=== PATIENT | male | born 1945 | race Asian ===

== ENCOUNTER 2021-04-17 18:19 | Inpatient (IN) | payer MEDICARE ==
--- NOTE | 2021-04-17 18:33 | Emergency Department Report ---
HPI - General Time Seen by Provider: 04/17/21 18:21 - HPI HPI: Room 20 The patient is a 75-year-old male present with a chief complaint of slurred speech. The patient states last time he notices speech was normal was last night before going to bed at 21: 00. The patient states he awakened this morning at 10: 00 and took a phone call. The patient states it was at this time that he noticed he had slurred speech. Later this afternoon the patient's son saw the patient fall and EMS was called. Son noticed slurred speech and admitted to right-sided weakness. Patient complains of pain in his right lower extremity which is chronic since he has had surgery and his slurred speech. Patient denies any other complaints ED Past Medical Hx - Past Medical History Hx Hypertension: Yes - Surgical History Past Surgical History?: No Additional Surgical History: Back surgery - Family History Family history: no significant - Social History Smoking Status: Never Smoker Substance Use Type: None ED Review of Systems ROS: Stated complaint: SLURRRED SPEECH Other details as noted in HPI Constitutional: no symptoms reported Eyes: denies: eye pain ENT: denies: throat pain Respiratory: no symptoms reported Cardiovascular: denies: chest pain Endocrine: no symptoms reported Gastrointestinal: denies: abdominal pain Genitourinary: denies: dysuria Musculoskeletal: denies: back pain Neurological: other (Slurred speech). denies: headache Physical Exam - Physical Exam Physical Exam: GENERAL: The patient is well-developed well-nourished male lying on stretcher not appearing to be in acute distress. [] HEENT: Normocephalic. Atraumatic. Extraocular motions are intact. Patient has moist mucous membranes. NECK: Supple. Trachea midline CHEST/LUNGS: Clear to auscultation. There is no respiratory distress noted. HEART/CARDIOVASCULAR: Regular. There is no tachycardia. There is no gallop rub or murmur. ABDOMEN: Abdomen is soft, nontender. Patient has normal bowel sounds. There is no abdominal distention. SKIN: There is no rash. There is no edema. There is no diaphoresis. NEURO: The patient is awake, alert, and oriented. The patient is cooperative. Cranial nerves II through XII grossly intact with exception of cranial nerve #7 on the right patient's smile is asymmetric. Slight drift of the right upper extremity when held a 45 degree angle for 10 seconds however does not fall down to the bed. Patient complains of pain and weakness in his right leg since he has had surgery making it difficult to flex at the right hip and right knee. GCS 15 the patient has slurred speech it. GCS 15. NIHSS= 4 MUSCULOSKELETAL: There is no evidence of acute injury. ED Medical Decision Making - Lab Data Result diagrams: 04/17/21 18:40 04/17/21 18:40 Laboratory Tests 04/17/21 04/17/21 04/17/21 18:40 18:40 18:40 WBC 2.8 L RBC 3.32 L Hgb 9.1 L Hct 27.4 L MCV 82 L MCH 27 L MCHC 33 RDW 22.0 H Plt Count 217 Lymph % (Auto) Box Blank Machine Feeder Seg Neutrophils % Box Blank Machine Feeder PT 14.4 INR 1.07 APTT 31.3 Thrombin Time 16.5 Sodium 131 L Potassium 4.5 Chloride 101.5 Carbon Dioxide 21 L Anion Gap 13 BUN 7 L Creatinine 1.2 Estimated GFR 59 BUN/Creatinine Ratio 6 Glucose 85 Calcium 8.6 Magnesium 2.10 Troponin T < 0.010 Plasma/Serum Alcohol 04/17/21 18:40 WBC RBC Hgb Hct MCV MCH MCHC RDW Plt Count Lymph % (Auto) Seg Neutrophils % PT INR APTT Thrombin Time Sodium Potassium Chloride Carbon Dioxide Anion Gap BUN Creatinine Estimated GFR BUN/Creatinine Ratio Glucose Calcium Magnesium Troponin T Plasma/Serum Alcohol < 0.01 - EKG Data -: EKG Interpreted by [place] EKG shows normal: sinus rhythm Rate: bradycardia (57 bpm) - EKG Data When compared to previous EKG there are: previous EKG unavailable Interpretation: nonspecific ST-T wave rhina (T wave inversion lead aVL) - Radiology Data Radiology results: report reviewed (CT head), image reviewed (CT head) [facility] [address] [place] [address] Cat Scan Report Signed Patient: ERLINDA SEN MR#: [id number] : 1945 Acct:[id number] Age/Sex: 75 / M ADM Date: 04/17/21 Loc: ED Attending Dr: Ordering Physician: JUANJO ARAYA MD Date of Service: 04/17/21 Procedure(s): CT head/brain wo con Accession Number(s): [id number] cc: JUANJO ARAYA MD CT head/brain wo con INDICATION / CLINICAL INFORMATION: 75 years Male; Slurred speech. TECHNIQUE: Routine CT head without contrast. All CT scans at this location are performed using CT dose reduction for ALARA by means of automated exposure control. COMPARISON: None. FINDINGS: BRAIN / INTRACRANIAL CONTENTS: There is extensive cerebral white matter disease most consistent with microvascular angiopathy. 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 There is mild cerebral atrophy with associated prominence of the ventricular system. There is no clear CT evidence of acute intracranial hemorrhage or significant mass effect. ORBITS: No significant abnormality of visualized orbits. SINUSES / MASTOIDS: No significant abnormality in the visualized paranasal sinuses or mastoid air cells. CRANIOCERVICAL JUNCTION: No significant abnormality. ADDITIONAL FINDINGS: None. IMPRESSION: 1. There is extensive microvascular angiopathy as described without CT evidence of acute intracranial hemorrhage. The study was specified as code stroke and called to Dr. Araya in the ER at 5:50 PM Central standard time. Signer Name: Renard Tomas MD Signed: 04/17/2021 6:51 PM Workstation Name: [id number] Transcribed By: MR Dictated By: Renard Tomas MD Electronically Authenticated By: Renard Tomas MD Signed Date/Time: 04/17/211850 DD/ 47 TD/TT: Print Cancel - Differential Diagnosis CVA Critical care attestation.: If time is entered above; I have spent that time in minutes in the direct care of this critically ill patient, excluding procedure time. ED Disposition Clinical Impression: CVA (cerebral vascular accident) Disposition: OP ADMIT IP TO THIS HOSP Is pt being admited?: Yes Does the pt Need Aspirin: Yes Condition: Fair Referrals: PRIMARY CARE, [Primary Care Provider] - 3-5 Days Time of Disposition: 19:51 (Hospitalist notified (CHACORTA Suarez))
--- NOTE | 2021-04-17 18:40 | Consultation ---
History of Present Illness - Reason for Consult Consult date: 04/17/21 - History of Present Illness [facility] Consult Note # Demographics Consult Type: Acute Stroke Level 2 (4.5-24 hrs) Patient Location: Emergency Room First Name: Thomas Last Name: Amy Date of : 1945 Age: 75 Gender: Male Time of Initial Page ( Time): 04/17/2021, 18:27 Time of Return Call ( Time): 04/17/2021, 18:29 # HPI History: 75yo man who presents to the hospital with symptoms of slurred speech. He noted it initially this morning at around 10AM when he took a phone call. He last was speaking normally at 9PM. he states that his right foot feels numb. # Scores Time of exam and NIHSS (): 04/17/2021, 18:34 Level of Consciousness 1a: [0] = Alert; keenly responsive LOC Questions 1b: [0] = Answers both questions correctly LOC Commands 1c: [0] = Performs both tasks correctly Best Gaze 2: [0] = Normal Visual 3: [0] = No visual loss Facial Palsy 4: [1] = Minor paralysis Motor Arm Left 5a: [0] = No drift Motor Arm Right 5b: [0] = No drift Motor Leg Left 6a: [0] = No drift Motor Leg Right 6b: [0] = No drift Limb Ataxia 7: [0] = Absent Sensory 8: [0] = Normal Best Language 9: [0] = No aphasia Dysarthria 10: [2] = Severe dysarthria Extinction and Inattention 11: [0] = No abnormality NIHSS Total: 3 # PMH-FH-SH Past Medical History: hypertension Social History: non-smoker non-drinker Medications: aspirin # Data Head CT: no bleed extensive white matter disease # Assessment Impression: Ischemic Stroke (Acute) # Plan Thrombolytic/Intervention: NOT IV Thrombolytic or IA Intervention Thrombolytic Exclusion: > 4.5 hours Intraarterial Exclusion: clinically consistent with small vessel disease Target Blood Pressure: SBP < 220 Labs: ESR lipid panel Imaging: (urgency: routine): CT Angiogram Head and CT Angiogram Neck MRI Brain without contrast Diagnostic Test: echo without bubble study Therapy/Evaluation: NPO until swallow evaluation PT/OT evaluation speech/swallow consultation Medication: aspirin 81 mg PLUS clopidogrel (Plavix) 75 mg for 21 days, then monotherapy therafter DVT Prophylaxis: SCD chemical DVT prophylaxis Other: permissive hypertension telemetry monitoring I have discussed my recommendations with the referring provider Disposition: admit Medications and Allergies Allergies Allergy/AdvReac Type Severity Reaction Status Date / Time No Known Allergies Allergy Unverified 04/17/21 18:35
[2021-04-17 18:47] LABS: Hematocrit 27.4 % (35.5-45.6); Hemoglobin 9.1 gm/dl (11.8-15.2); Mean Corpuscular HGB Conc 33 % (32-34); Mean Corpuscular Volume 82 fl (84-94); Platelet Count 217 K/mm3 (140-440); Red Blood Count 3.32 M/mm3 (3.65-5.03)
[2021-04-17] MEDS ORDERED: ASPIRIN 325 MG TAB PO ONE (18:51)
--- NOTE | 2021-04-17 18:56 | Cat Scan Report ---
CT head/brain wo con INDICATION / CLINICAL INFORMATION: 75 years Male; Slurred speech. TECHNIQUE: Routine CT head without contrast. All CT scans at this location are performed using CT dos e reduction for ALARA by means of automated exposure control. COMPARISON: None. FINDINGS: BRAIN / INTRACRANIAL CONTENTS: There is extensive cerebral white matter disease most consistent with microvascular angiopathy. Findings are most consistent with old infarct involving left cerebellum wit h encephalomalacia. There is mild cerebral atrophy with associated prominence of the ventricular syst em. There is no clear CT evidence of acute intracranial hemorrhage or significant mass effect. ORBITS: No significant abnormality of visualized orbits. SINUSES / MASTOIDS: No significant abnormality in the visualized paranasal sinuses or mastoid air hamlet ls. CRANIOCERVICAL JUNCTION: No significant abnormality. ADDITIONAL FINDINGS: None. IMPRESSION: 1. There is extensive microvascular angiopathy as described without CT evidence of acute intracranial hemorrhage. The study was specified as code stroke and called to Dr. Denson in the ER at 5:50 PM Central standard t briana. Signer Name: Renard Tomas MD Signed: 04/17/2021 6:51 PM Workstation Name: [id number]
[2021-04-17 18:58] LABS: INR 1.07 (0.87-1.13); Partial Thromboplastin Time 31.3 Sec. (24.2-36.6)
[2021-04-17 19:11] LABS: Thrombin Time 16.5 Sec. (15.1-19.6)
[2021-04-17 19:13] LABS: BUN/Creatinine Ratio 6; Blood Urea Nitrogen 7 mg/dL (9-20); Calcium 8.6 mg/dL (8.4-10.2); Hemolysis Index 7
[2021-04-17 19:53] LABS: Total Cells Counted 100
[2021-04-17 19:54] LABS: Anisocytosis 1+; Hypochromasia Rare
[2021-04-17] MEDS ORDERED: ASPIRIN 325 MG TAB ONE (21:10)
--- NOTE | 2021-04-17 21:13 | History and Physical Report ---
History of Present Illness Date of examination: 04/17/21 Date of admission: 04/17/21 19: Chief complaint: Slurred speech History of present illness: The patient is a 75-year-old male present with a chief complaint of slurred speech. The patient states last time he notices speech was normal was last night before going to bed at 21: 00. The patient states he awakened this morning at 10: 00 and took a phone call. The patient states it was at this time that he noticed he had slurred speech. Later this afternoon the patient's son saw the patient fall and EMS was called. Son noticed slurred speech and admitted to right-sided weakness. Patient complains of pain in his right lower extremity which is chronic since he has had surgery and his slurred speech. P atient denies any other complaints ED work-up shows WBC 2.8 hemoglobin 9.1, platelets 217, sodium level 131, potassium 4.5, creatinine 1.2, magnesium 2.10, troponin T is negative. Patient seen in ED at bedside. Patient has slurred speech but answering question appropriately. Patient reported a fall this morning and she said he said his son assisted him to get up and since then he has been having slurred speech. Patient is admitted admitted for stroke work-up. CT of the head done no acute b leeding finding. MRI of the head brain and neck ordered we will follow up with report. Neurologist consulted Past History Past Medical History: hypertension, other (right leg weakness for many years) Past Surgical History: Other (back surgery ) Social history: lives with family Family history: hypertension Medications and Allergies Allergies Allergy/AdvReac Type Severity Reaction Status Date / Time No Known Allergies Allergy Unverified 04/17/21 18:35 Review of Systems Constitutional: weakness Ears, nose, mouth and throat: no epistaxis, no bleeding gums Cardiovascular: high blood pressure Respiratory: no congestion, no wheezing Gastrointestinal: no melena Rectal: no hemorrhoids Musculoskeletal: muscle weakness, other (s/p fall at home) Neurological: weakness, change in speech, balance difficulties, gait dysfunction Psychiatric: no hallucinations Hematologic/Lymphatic: no easy bruising, no easy bleeding Allergic/Immunologic: no urticaria Exam - Constitutional Vitals: Temp Pulse Resp BP Pulse Ox 97.8 F 56 L 17 162/72 100 04/17/21 18:49 04/17/21 21:00 04/17/21 21:00 04/17/21 21:00 04/17/21 21:00 General appearance: Present: mild distress, well-nourished - EENT Eyes: Present: PERRL ENT: hearing intact, clear oral mucosa - Neck Neck: Present: supple, normal ROM - Respiratory Respiratory effort: normal Respiratory: bilateral: CTA - Cardiovascular Heart Sounds: Present: S1 & S2. Absent: rub, click - Extremities Extremities: pulses symmetrical, No edema Peripheral Pulses: within normal limits - Abdominal General gastrointestinal: Present: soft, non-tender, non-distended, normal bowel sounds Male genitourinary: Present: normal - Integumentary Integumentary: Present: clear, warm, dry - Musculoskeletal Musculoskeletal: gait normal, strength equal bilaterally - Psychiatric Psychiatric: appropriate mood/affect, intact judgment & insight - Neurologic Neurologic: CNII-XII intact, moves all extremities - Allied Health Allied health notes reviewed: nursing, PT HEART Score - HEART Score Troponin: Troponin T < 0.010 ng/mL (0.00-0.029) 04/17/21 18:40 Results - Labs CBC & Chem 7: 04/18/21 05:40 04/18/21 05:40 Labs: Abnormal lab results 04/17/21 04/17/21 Range/Units 18:40 18:40 WBC 2.8 L (4.5-11.0) K/mm3 RBC 3.32 L (3.65-5.03) M/mm3 Hgb 9.1 L (11.8-15.2) gm/dl Hct 27.4 L (35.5-45.6) % MCV 82 L (84-94) fl MCH 27 L (28-32) pg RDW 22.0 H (13.2-15.2) % Seg Neuts % (Manual) 30.0 L (40.0-70.0) % Lymphocytes % (Manual) 55.0 H (13.4-35.0) % Monocytes % (Manual) 11.0 H (0.0-7.3) % Seg Neutrophils # Man 0.8 L (1.8-7.7) K/mm3 Sodium 131 L (137-145) mmol/L Carbon Dioxide 21 L (22-30) mmol/L BUN 7 L (9-20) mg/dL Assessment and Plan - Patient Problems (1) CVA (cerebral vascular accident) Current Visit: Yes Status: Acute Plan to address problem: Patient came with slurred speech CT of the head done-CT of the head showed extensive microvascular angiopathy but no evidence of acute intracranial hemorrhage MRI of the follow-up with results brain Start antiplatelet and statin Neurologist consult. (2) Slurred speech Current Visit: Yes Status: Acute Plan to address problem: Aspiration precaution Speech pathologist consulted. N.p.o. till swallow study done (3) Anemia Current Visit: Yes Status: Acute Plan to address problem: Monitor H&H we will transfuse packed red blood cells if H&H is less than 7 Start multivitamin and iron supplement (4) Hyponatremia Current Visit: Yes Status: Acute Plan to address problem: Likely secondary to dehydration monitor sodium level IV hydration with normal saline (5) DVT prophylaxis Current Visit: Yes Status: Acute Plan to address problem: Subcutaneous Lovenox (6) Full code status Current Visit: Yes Status: Acute Plan to address problem: Patient is full code
[2021-04-17] MEDS ORDERED: SODIUM CHLORIDE 0.9% 1000 ML 1,000 ML IV SCH (21:15)
[2021-04-17 21:39] LABS: Bilirubin,Urine NEG (Negative); Blood,Urine SM (Negative); Color,Urine Straw (Yellow); Protein,Urine <15 mg/dL mg/dL (Negative); Urobilinogen,Urine < 2.0 mg/dL (<2.0); WBC,Urine < 1.0 /HPF (0.0-6.0)
[2021-04-17] MEDS ORDERED: ONDANSETRON 4 MG/2 ML INJ IV PRN (22:00)
[2021-04-17] MEDS ORDERED: ALUM-MAG HYDROXIDE-SIMETHICONE 200-200-20MG/5ML ORAL LIQD 30 ML PO PRN (22:00)
[2021-04-17] MEDS ORDERED: METOCLOPRAMIDE 10 MG/2 ML INJ IV PRN (22:00)
[2021-04-17] MEDS ORDERED: SENNOSIDES 8.6 MG TAB PO PRN (22:00)
[2021-04-17] MEDS ORDERED: MAGNESIUM HYDROXIDE (MOM) ORAL LIQD UDC PO PRN (22:00)
[2021-04-17] MEDS ORDERED: ACETAMINOPHEN 325 MG TAB PO PRN (22:00)
[2021-04-17] MEDS: FAMOTIDINE 20 MG/2 ML INJ IV SCH (23:56)
[2021-04-18 05:53] LABS: Hematocrit 27.9 % (35.5-45.6); Hemoglobin 9.4 gm/dl (11.8-15.2); Mean Corpuscular HGB Conc 34 % (32-34); Mean Corpuscular Volume 83 fl (84-94); Platelet Count 225 K/mm3 (140-440); Red Blood Count 3.38 M/mm3 (3.65-5.03)
[2021-04-18 06:00] LABS: Red Cell Distribution Width 22.1 % (13.2-15.2)
[2021-04-18 06:22] LABS: Albumin 3.7 g/dL (3.9-5); BUN/Creatinine Ratio 6; Blood Urea Nitrogen 7 mg/dL (9-20); Calcium 9.1 mg/dL (8.4-10.2); Chol/HDL Ratio 6.04 %; HDL Cholesterol 24 mg/dL (40-59); Hemolysis Index 11; LDL Cholesterol,Direct 101 mg/dL (50-130)
[2021-04-18 06:28] LABS: Alanine Aminotransferase < 5 units/L (7-56)
[2021-04-18 08:22] VITALS: BP 146/71
[2021-04-18] MEDS ORDERED: ASPIRIN EC 81 MG TAB PO SCH (10:00)
[2021-04-18 11:09] LABS: Total Cells Counted 100
[2021-04-18 11:10] LABS: Anisocytosis 1+
[2021-04-18 11:11] LABS: Ovalocytes Rare; Schistocytes Few
[2021-04-18 11:13] LABS: Burr Cells Rare; Platelet Estimate Consistent w Auto
[2021-04-18] MEDS: FAMOTIDINE 20 MG/2 ML INJ IV SCH (11:16)
--- NOTE | 2021-04-18 12:00 | Discharge Summary ---
Providers - Providers Date of Admission: 04/17/21 19:52 Date of discharge: 04/18/21 Attending physician: CONCEPCION PAZ 04/17/21 21:14 Consult to Physician [CONS] Routine Comment: Consulting Provider: RADHA JANE Physician Instructions: Reason For Exam: cva 04/17/21 21:15 Occupational Therapy Evaluate and Treat [CONS] Routine Comment: Reason For Exam: Neuro deficits Physical Therapy Evaluation and Treat [CONS] Routine Comment: Reason For Exam: Neuro deficits Primary care physician: MAIL OPENER Hospitalization Reason for admission: Slurred speech and neuro symptoms Condition: Fair Pertinent studies: CT head without contrast extensive microvascular angiopathy no acute abnormality noted Hospital course: Slurred speech The patient is a 75-year-old male present with a chief complaint of slurred speech. The patient states last time he notices speech was normal was last night before going to bed at 21: 00. The patient states he awakened this morning at 10: 00 and took a phone call. The patient states it was at this time that he noticed he had slurred speech. Later this afternoon the patient's son saw the patient fall and EMS was called. Son noticed slurred speech and admitted to right-sided weakness. Patient complains of pain in his right lower extremity which is chronic since he has had surgery and his slurred speech. Patient denies any other complaints ED work-up shows WBC 2.8 hemoglobin 9.1, platelets 217, sodium level 131, potassium 4.5, creatinine 1.2, magnesium 2.10, troponin T is negative. Patient seen in ED at bedside. Patient has slurred speech but answering question appropriately. Patient reported a fall this morning and she said he said his son assisted him to get up and since then he has been having slurred speech. Patient is admitted admitted for stroke work-up. CT of the head done no acute bleeding finding. MRI of the head brain and neck ordered we will follow up with report. Neurologist consulted. Neuro work-up is in progress however patient refused to stay and wanted to leave AMA, As patient is elderly and with neuro symptoms, unable to make intelligent decision, I called patient's son is next of and informed patient's desire to leave AMA And also explained patient's condition, incomplete work-up and treatment, risks and consequences of leaving AGAINST MEDICAL ADVICE Patient son verbalized understanding and requested AMA and and to the patient AGAINST MEDICAL ADVICE. I encouraged the patient and the son to go to the nearest emergency room should the patient need any medical help. The son verbalized understanding Patient left AMA Final diagnosis: Possible CVA/work-up not completed Slurred speech Anemia Hyponatremia Left AMA Disposition: DC-07 LEFT AGAINST MED ADVICE Final Discharge Diagnosis (Prints w/discharge instructions): Final diagnosis: Possible CVA/work-up not completed. Slurred speech. Anemia. Hyponatremia. Leukopenia Time spent for discharge: 35 min Core Measure Documentation - Palliative Care Palliative Care/ Comfort Measures: Not Applicable - Core Measures Any of the following diagnoses?: none Exam - Constitutional Vitals: Temp Pulse Resp BP Pulse Ox 98.2 F 56 L 20 146/71 97 04/18/21 08:00 04/18/21 08:00 04/18/21 08:00 04/18/21 08:00 04/18/21 08:00 General appearance: Present: no acute distress, well-nourished - EENT Eyes: Present: PERRL, EOM intact - Neck Neck: Present: supple, normal ROM - Respiratory Respiratory effort: normal Respiratory: bilateral: diminished, negative: rales, rhonchi, wheezing - Cardiovascular Rhythm: regular Heart Sounds: Present: S1 & S2 - Extremities Extremities: no ischemia, No edema - Abdominal General gastrointestinal: Present: soft, non-tender, non-distended, normal bowel sounds - Integumentary Integumentary: Present: clear, warm - Musculoskeletal Musculoskeletal: strength equal bilaterally - Psychiatric Psychiatric: appropriate mood/affect, other - Neurologic Neurologic: moves all extremities Plan Activity: advance as tolerated, fall precautions Diet: low carbohydrate Additional Instructions: Patient left AMA Follow up with: PRIMARY CARE,MD [Primary Care Provider] - 3-5 Days Forms: AMA Form Prescriptions: Aspirin EC [Halfprin EC] 81 mg PO QDAY #30 tablet AtorvaSTATin [Lipitor] 40 mg PO QHS #30 tablet
--- NOTE | 2021-04-18 12:06 | Event Note ---
Date: 04/18/21 I called patient's son Mr. Scott russ and discussed in detail patient's condition, treatment plan, ongoing neuro work-up which is incomplete, and the need for imaging studies, MRI brain, carotid Doppler, echocardiogram per stroke protocol as well as physical therapy, Occupational Therapy and speech therapy. I explained the Risks and consequences of leaving AGAINST MEDICAL ADVICE, he verbalized understanding, and wanted to take his dad home signing AMA. I also discussed with the patient Mr. Thomas russ, the risks and consequences and complications of leaving AMA without completing the neuro/stroke work-up. He verbalized understanding, and wanted to leave AGAINST MEDICAL ADVICE. I gave the prescriptions for baby aspirin 81 mg daily, Lipitor 40 mg daily. And advised to seek medical help and see primary care physician as well as neurologist KATELYNN. They verbalized understanding and understood the seriousness of his condition. Patient's nurse Ms. Cross is aware of my conversation with both the patient and his son.
--- NOTE | 2021-04-23 10:43 | Electrocardiograph Report ---
[facility] Test Date: 2021-04-17 Test Time: 19:00:42 Pat Name: ERLINDA SEN Department: Room: A480 1 Gender: M Gin Feeder: JAY : 1945 Requested By: JUANJO ARAYA Order Number: [id number] Reading MD: Niall Mcknight Measurements Intervals [place] Rate: 57 P: 55 WV: 245 QRS: 73 QRSD: 86 T: 70 QT: 476 QTc: 464 Interpretive Statements Sinus bradycardia Prolonged WV interval Consider left ventricular hypertrophy Borderline ST elevation, inferior leads No previous ECG available for comparison Electronically Signed On 04-23-2021 10:43:14 EDT by Niall Mcknight
== END 2021-04-18 12:30 | disposition left against medical advice (07) | DRG 65 ==
LOC: ED 18:19 → 4A 19:52
PROVIDERS: ADMIT Hospitalist; ATTEND Internal Medicine
DX: I63.9 Cerebral infarction, unspecified (principal); E87.1 Hypo-osmolality and hyponatremia; R47.81 Slurred speech; I10 Essential (primary) hypertension; D64.9 Anemia, unspecified; Z82.49 Family history of ischemic heart disease and other diseases of the circulatory system; Z79.899 Other long term (current) drug therapy
CPT/HCPCS: 36415; 70450; 80048; 80053; 80061; 80320; 81001; 83036; 83735; 84484; 85007; 85025; 85610; 85670; 85730; 93005; G0378; G0480; J7030

== ENCOUNTER 2022-02-21 11:15 | Emergency (ER) | payer MEDICARE ==
--- NOTE | 2022-02-21 11:44 | Emergency Department Report ---
HPI - General Chief Complaint: Urogenital-Male Time Seen by Provider: 02/21/22 11:31 - HPI HPI: Room 6 Patient is a 76-year-old male present with a chief complaint of suprapubic pain. Patient has a history of BPH and indwelling Holman. Patient states yesterday at approximately 1500 he noticed decreased urinary output from Holman catheter and increased pressure in the suprapubic region. Patient denies nausea vomiting or history of fever. Patient states he feels as though his Holman catheter is obstructed ED Past Medical Hx - Past Medical History Hx Hypertension: Yes Hx CVA: Yes Hx Arthritis: Yes Additional medical history: BPH, osteoarthritis - Surgical History Additional Surgical History: Back surgery - Family History Family history: no significant - Social History Smoking Status: Former Smoker Substance Use Type: None - Medications Home Medications: Home Medications Medication Instructions Recorded Confirmed Last Taken Type Aspirin EC [Halfprin EC] 81 mg PO QDAY #30 tablet 04/18/21 Unknown Rx AtorvaSTATin [Lipitor] 40 mg PO QHS #30 tablet 04/18/21 Unknown Rx levoFLOXacin [Levaquin TAB] 500 mg PO QDAY #10 tablet 02/21/22 Unknown Rx ED Review of Systems ROS: Stated complaint: DYSURIA/PAIN Other details as noted in HPI Constitutional: denies: fever Eyes: denies: eye pain ENT: denies: throat pain Respiratory: no symptoms reported Cardiovascular: denies: chest pain Endocrine: no symptoms reported Gastrointestinal: abdominal pain. denies: nausea, vomiting Genitourinary: other (Decrease urinary output from Holman) Musculoskeletal: denies: back pain Neurological: denies: headache Physical Exam - Physical Exam Vital Signs: Vital Signs 02/21/22 11:16 Pulse Rate 95 H Blood Pressure 160/90 [Right] O2 Sat by Pulse 97 Oximetry Physical Exam: GENERAL: The patient is well-developed well-nourished male lying on stretcher not appearing to be in acute distress. [] HEENT: Normocephalic. Atraumatic. Extraocular motions are intact. Patient has moist mucous membranes. NECK: Supple. Trachea midline CHEST/LUNGS: Clear to auscultation. There is no respiratory distress noted. HEART/CARDIOVASCULAR: Regular. There is no tachycardia. There is no gallop rub or murmur. ABDOMEN: Distended bladder palpable in suprapubic region. Remainder of abdomen is soft and nontender SKIN: There is no rash. There is no edema. There is no diaphoresis. NEURO: The patient is awake, alert, and oriented. The patient is cooperative. The patient has no focal neurologic deficits. The patient has normal speech. GCS 15 MUSCULOSKELETAL: There is no evidence of acute injury. ED Course Vital Signs 02/21/22 11:16 Pulse Rate 95 H Blood Pressure 160/90 [Right] O2 Sat by Pulse 97 Oximetry - Reevaluation(s) Reevaluation #1: 02/21/22 12:58 Patient improved after Holman ED Medical Decision Making - Differential Diagnosis Urinary retention, Holman obstruction Critical care attestation.: If time is entered above; I have spent that time in minutes in the direct care of this critically ill patient, excluding procedure time. ED Disposition Clinical Impression: Urinary retention, UTI (urinary tract infection) Disposition: 01 HOME / SELF CARE / HOMELESS Is pt being admited?: No Does the pt Need Aspirin: No Condition: Stable Instructions: Urinary Tract Infection, Adult, [id number], Acute Urinary Retention, Male, [id number] Additional Instructions: Return to the emergency department should you develop worsening symptoms, inability to tolerate food or liquids, high fever or any other concerns Prescriptions: levoFLOXacin [Levaquin TAB] 500 mg PO QDAY #10 tablet Referrals: FATIMAH HUANG MD [Staff Physician] - 3-5 Days Time of Disposition: 12:59
[2022-02-21 12:16] LABS: Bacteria,Urine 1+ /HPF (Negative); Bilirubin,Urine NEG (Negative); Blood,Urine LG (Negative); Color,Urine Yellow (Yellow); Protein,Urine <15 mg/dL mg/dL (Negative); Urobilinogen,Urine < 2.0 mg/dL (<2.0)
[2022-02-21 14:19] VITALS: BP 159/86
== END 2022-02-21 14:19 | disposition home or self-care (01) ==
LOC: ED 11:15
DX: R33.9 Retention of urine, unspecified (principal); N39.0 Urinary tract infection, site not specified; I10 Essential (primary) hypertension; I63.9 Cerebral infarction, unspecified; M19.90 Unspecified osteoarthritis, unspecified site; N40.0 Benign prostatic hyperplasia without lower urinary tract symptoms; Z98.890 Other specified postprocedural states; Z87.891 Personal history of nicotine dependence
CPT/HCPCS: 51702; 81001; 87076; 87086; 87186; 99283